=== PATIENT | female | born 1995 | race Caucasian/White ===

== ENCOUNTER 2022-07-31 17:53 | Observation (INO) | payer OTHER, SELFPAY ==
[2022-07-31] VITALS (26 sets, daily range): BP systolic 128–167; BP diastolic 67–103; PULSE 43–68; RESP 16–36; TEMP 36.3–36.7; O2SAT 97–100; BMI 19.8
[2022-07-31] MEDS: ONDANSETRON 4 MG/2 ML INJ IV (18:31)
[2022-07-31] MEDS: SODIUM CHLORIDE 0.9% 1,000 ML 1000 ML IV (18:32)
--- NOTE | 2022-07-31 18:41 | ED_ITS ---
HPI - Nausea/Vomiting/Diarrhea General Chief complaint: Nausea/Vomiting/Diarrhea Stated complaint: nausea/sob x1 day Time Seen by Provider: 07/31/22 18:41 Source: patient Mode of arrival: Ambulatory Limitations: no limitations History of Present Illness HPI Narrative: This is a 26-year-old female on Prozac for depression, patient states she has a history of throwing up she states that will happen a couple times a year and she will usually have to go to the hospital for fluids and antinausea medication. She states different things seemed to exacerbate it sometimes it is after she is been drinking alcohol, which he is having period cramps or an ovarian cyst. Patient states she started having symptoms today she is been diaphoretic all day so she thinks she may or may not had a fever. Patient states she is felt a little short of breath a little bit of chest pain but states it started after her vomiting. She is had persistent vomiting throughout the day. She states she is been stooling regularly without any diarrhea constipation. She has not had any dysuria, urgency or frequency. She states she is been cramping in her feet and hands scanning a little bit better but is still very much present. She denies any passing out. She denies abdominal back or flank pain. Patient states her only medication is Prozac no changes 2 dosages. She denies any prior surgeries. No known drug allergies. She smokes tobacco occasionally. She states she typically has 2 or 3 alcoholic drinks daily and had several more left yesterday. She does use marijuana daily. She denies any other illicit. She lives in [place] normally. She states she has not reaction to some kind of antinausea medication that made her very jittery but she does not know what it is called. She does have a primary care through [facility]. Related Data Allergies Allergy/AdvReac Type Severity Reaction Status Date / Time No Known Drug Allergies Allergy Verified 07/31/22 17:58 Review of Systems Review of Systems ROS Unobtainable: All systems reviewed & are unremarkable except as noted in HPI and below Patient History Social History Smoking Status: Current every day smoker Smoking Status: Current every day smoker alcohol intake frequency: 0-2 drinks per day Alcohol type: hard liquor Substance Use Type: marijuana Exam Narrative Exam Narrative: GEN: w thin female alert and oriented x 3, patient appears to be in moderate distress. Patient is diaphoretic. HEENT: Atraumatic, pupils are equal round reactive to light, extraocular movements are intact, nares are clear, TMs are clear with no fluid, there is no conjunctival pallor. Throat is clear without any exudates, erythema, tonsillar enlargement or uvular deviation HEART: Bradycardic but Regular rate and rhythm without murmur, clicks, rubs. No carotid bruits, pulses are equal in upper and lower extremities. Patient has no swelling bilateral lower extremities. LUNGS:Lungs clear to auscultation, no wheezes, rales, crackles, chest moves symmetrically, no tachypnea or accessory muscle use. ABD:bowel sounds normal, soft, no guarding, rebound, rigidity, no masses noted, no hepatosplenomegaly, nontender to palpation. Not distended. :No CVA tenderness MSCL: Non-tender, no muscle atrophy, muscles strength 5/5 upper and lower extremities, full range of motion NEURO:CN 2-12 intact, sensation normal, no tremor, earlier patient states earlier she was having carpopedal type spasms but not appreciated currently. No fasciculations. Initial Vital Signs Initial Vital Signs: Vital Signs Pulse Rate 54 L 07/31/22 17:58 Respiratory Rate 18 07/31/22 17:58 Blood Pressure 128/76 07/31/22 17:58 Pulse Oximetry 100 07/31/22 17:58 Oxygen Delivery Method 07/31/22 17:58 Course Orders Ordered: ED Orders 07/31/22 20:40 Lactate (Lactic Acid) Stat 07/31/22 21:12 Covid-19 + FLU A/B + RSV - PCR Stat 07/31/22 22:01 EKG-12 Lead Stat 07/31/22 22:15 CT abdomen pelvis w con Stat Acetaminophen (Acetaminophen 325 Mg Tablet) 650 mg PO Q6H PRN PRN Reason: Fever/Mild Pain (1-3) Sodium Chloride (Normal Saline 0.9%) 1,000 mls @ 125 mls/hr IV CONT AILYN Last Admin: 08/01/22 01:23 Dose: 125 mls/hr Documented By: SB Lorazepam (Lorazepam 2 Mg/Ml Inj) 1 mg IV Q4HR PRN PRN Reason: Anxiety Last Admin: 08/01/22 03:39 Dose: 1 mg Documented By: Admin: 07/31/22 20:32 Dose: 1 mg Documented By: CURTIS Naloxone HCl (Naloxone 0.4 Mg/Ml Vial) 0.2 mg IV Q2MIN PRN PRN Reason: Opiate Reversal Promethazine HCl (Promethazine 12.5 Mg Supp) 12.5 mg MT Q6HR PRN PRN Reason: Nausea And Vomiting Discontinued Medications Sodium Chloride (Normal Saline 0.9%) 1,000 mls @ 1,000 mls/hr IV BOLUS ONE Stop: 07/31/22 19:29 Last Infusion: 07/31/22 20:02 Dose: 0 mls/hr Documented By: Admin: 07/31/22 18:32 Dose: 1,000 mls/hr Documented By: CURTIS Lactated Ringer's (Lactated Ringers) 1,000 mls @ 1,000 mls/hr IV BOLUS ONE Stop: 07/31/22 19:54 Last Infusion: 07/31/22 21:01 Dose: 0 mls/hr Documented By: Admin: 07/31/22 20:02 Dose: 1,000 mls/hr Documented By: CURTIS Magnesium Sulfate (Magnesium Sulfate) 2 gm in 50 mls @ 25 mls/hr IV NOW ONE Stop: 07/31/22 21:38 Last Infusion: 07/31/22 21:55 Dose: 0 mls/hr Documented By: DIRK Co-signed By: CURTIS Admin: 07/31/22 19:46 Dose: 25 mls/hr Documented By: CURTIS Co-signed By: SUMA Lactated Ringer's (Lactated Ringers) 1,000 mls @ 1,000 mls/hr IV BOLUS ONE Stop: 07/31/22 22:58 Last Infusion: 08/01/22 01:22 Dose: 0 mls/hr Documented By: Admin: 07/31/22 22:12 Dose: 1,000 mls/hr Documented By: CURTIS Lorazepam (Lorazepam 2 Mg/Ml Inj) 1 mg IV NOW ONE Stop: 07/31/22 18:52 Last Admin: 07/31/22 19:04 Dose: 1 mg Documented By: CURTIS Lorazepam (Lorazepam 2 Mg/Ml Inj) 0.5 mg IV NOW ONE Stop: 07/31/22 22:15 Last Admin: 07/31/22 22:38 Dose: 0.5 mg Documented By: CURTIS Ondansetron HCl (Ondansetron 4 Mg Odt) 4 mg PO NOW PRN PRN Reason: Nausea And Vomiting Ondansetron HCl (Ondansetron 4 Mg/2 Ml Inj) 4 mg IV NOW PRN PRN Reason: Nausea And Vomiting Last Admin: 07/31/22 18:31 Dose: 4 mg Documented By: CURTIS Vital Signs Vital signs: Vital Signs - 8 hr 07/31/22 21:10 07/31/22 21:10 07/31/22 21:20 Temperature Pulse Rate 64 63 Respiratory Rate 22 24 Blood Pressure 154/95 H Pulse Oximetry 100 99 07/31/22 21:20 07/31/22 21:30 07/31/22 21:40 Temperature Pulse Rate 63 63 Respiratory Rate Blood Pressure 150/99 H Pulse Oximetry 99 99 07/31/22 21:40 07/31/22 21:50 07/31/22 21:50 Temperature 98.0 F Pulse Rate 62 Respiratory Rate Blood Pressure 139/92 H 137/94 H Pulse Oximetry 97 07/31/22 22:00 07/31/22 22:00 07/31/22 22:10 Temperature Pulse Rate 63 68 Respiratory Rate 28 H 30 H Blood Pressure 141/92 H Pulse Oximetry 98 99 07/31/22 22:10 07/31/22 22:34 07/31/22 23:00 Temperature Pulse Rate 66 65 Respiratory Rate 36 H Blood Pressure 132/85 Pulse Oximetry 100 100 07/31/22 23:30 08/01/22 00:00 08/01/22 00:20 Temperature Pulse Rate 64 65 64 Respiratory Rate 28 H Blood Pressure Pulse Oximetry 99 100 99 08/01/22 00:20 08/01/22 00:30 Temperature Pulse Rate 65 Respiratory Rate Blood Pressure 154/98 H Pulse Oximetry 99 MDM - Nausea/Vomiting/Diarrhea Lab Data 07/31/22 18:26 07/31/22 18:26 Labs: Lab Results 07/31/22 07/31/22 07/31/22 Range/Units 18:26 18:26 18:26 WBC 14.2 H (4.5-11.0) X10^3/uL RBC 4.16 (4.0-5.2) X10^6/uL Hgb 13.2 (12.0-16.0) g/dL Hct 38.6 (36-46) % MCV 92.8 (80-100) fL MCH 31.7 (26-34) PG MCHC 34.1 (30-36) % RDW 13.6 (11.6-14.8) % Plt Count 274 (150-400) X10^3/uL Neut % (Auto) 90.9 H (50-75) % Lymph % (Auto) 6.3 L (25-40) % [place] % (Auto) 2.5 L (3-14) % Eos % (Auto) 0.1 L (2-4) % Baso % (Auto) 0.2 (0-2) % Neut # (Auto) 36118 H (9638-1758) /uL Lymph # (Auto) 900 L (7807-6451) /uL [place] # (Auto) 400 (0-900) /uL Eos # (Auto) 0 (0-450) /uL Baso # (Auto) 0 (0-100) /uL Sodium 139 (137-145) mmol/L Potassium 3.4 (3.4-5.1) mmol/L Chloride 106 (98-107) mmol/L Carbon Dioxide 13 L (22-32) mmol/L BUN 12 (7-17) mg/dL Creatinine 0.50 L (0.52-1.04) mg/dL Estimated GFR > 60 (>60) mL/min BUN/Creatinine Ratio 24.0 H (6-22) Glucose 171 H (70-100) mg/dL Lactate (0.7-2.1) mmol/L Calcium 10.0 (8.4-10.2) mg/dL Magnesium (1.6-2.3) mg/dL Total Bilirubin 0.9 (0.2-1.3) mg/dL AST 34 (14-36) IU/L ALT 31 (<35) IU/L Alkaline Phosphatase 50 (38-126) U/L Total Creatine Kinase 107 (30-135) U/L CK-MB (CK-2) 0.77 (<2.37) ng/mL CK-MB (CK-2) Rel Index 0.7 L (1.5-5.0) % Troponin I < 0.012 (0.01-0.034) ng/mL Total Protein 8.2 (6.3-8.2) g/dL Albumin 5.1 H (3.5-5.0) g/dL Globulin 3.1 (1.7-4.1) g/dL Albumin/Globulin Ratio 1.6 (1.0-2.8) Lipase 33 (23-300) U/L Procalcitonin (<0.5) ng/mL Urine RBC (0-5/HPF) Urine WBC (0-5/HPF) Urine Bacteria (None) Urine Mucus (Negative) Ur Culture Indicated? U Opiates 300ng/mL cut (Negative) Ur Oxycodone Screen (Negative) Urine Methadone Screen (Negative) Ur Barbiturates Screen (Negative) U Tricyclic Antidepress (Negative) Ur Phencyclidine Scrn (Negative) Ur Amphetamines Screen (Negative) U Methamphetamines Scrn (Negative) Ur MDMA Scrn (Ecstasy) (Negative) U Benzodiazepines Scrn (Negative) Urine Cocaine Screen (Negative) U Marijuana (THC) Screen (Negative) Ethyl Alcohol ( - 10) mg/dL SARS-CoV-2 (PCR) (Negative) Influenza A (RT-PCR) (NEGATIVE) Influenza B (RT-PCR) (NEGATIVE) RSV (PCR) (Negative) 07/31/22 07/31/22 07/31/22 Range/Units 18:26 18:26 18:26 WBC (4.5-11.0) X10^3/uL RBC (4.0-5.2) X10^6/uL Hgb (12.0-16.0) g/dL Hct (36-46) % MCV (80-100) fL MCH (26-34) PG MCHC (30-36) % RDW (11.6-14.8) % Plt Count (150-400) X10^3/uL Neut % (Auto) (50-75) % Lymph % (Auto) (25-40) % [place] % (Auto) (3-14) % Eos % (Auto) (2-4) % Baso % (Auto) (0-2) % Neut # (Auto) (7298-4347) /uL Lymph # (Auto) (2207-0409) /uL [place] # (Auto) (0-900) /uL Eos # (Auto) (0-450) /uL Baso # (Auto) (0-100) /uL Sodium (137-145) mmol/L Potassium (3.4-5.1) mmol/L Chloride (98-107) mmol/L Carbon Dioxide (22-32) mmol/L BUN (7-17) mg/dL Creatinine (0.52-1.04) mg/dL Estimated GFR (>60) mL/min BUN/Creatinine Ratio (6-22) Glucose (70-100) mg/dL Lactate 4.6 H* (0.7-2.1) mmol/L Calcium (8.4-10.2) mg/dL Magnesium 1.5 L (1.6-2.3) mg/dL Total Bilirubin (0.2-1.3) mg/dL AST (14-36) IU/L ALT (<35) IU/L Alkaline Phosphatase (38-126) U/L Total Creatine Kinase (30-135) U/L CK-MB (CK-2) (<2.37) ng/mL CK-MB (CK-2) Rel Index (1.5-5.0) % Troponin I (0.01-0.034) ng/mL Total Protein (6.3-8.2) g/dL Albumin (3.5-5.0) g/dL Globulin (1.7-4.1) g/dL Albumin/Globulin Ratio (1.0-2.8) Lipase (23-300) U/L Procalcitonin (<0.5) ng/mL Urine RBC (0-5/HPF) Urine WBC (0-5/HPF) Urine Bacteria (None) Urine Mucus (Negative) Ur Culture Indicated? U Opiates 300ng/mL cut (Negative) Ur Oxycodone Screen (Negative) Urine Methadone Screen (Negative) Ur Barbiturates Screen (Negative) U Tricyclic Antidepress (Negative) Ur Phencyclidine Scrn (Negative) Ur Amphetamines Screen (Negative) U Methamphetamines Scrn (Negative) Ur MDMA Scrn (Ecstasy) (Negative) U Benzodiazepines Scrn (Negative) Urine Cocaine Screen (Negative) U Marijuana (THC) Screen (Negative) Ethyl Alcohol < 10 ( - 10) mg/dL SARS-CoV-2 (PCR) (Negative) Influenza A (RT-PCR) (NEGATIVE) Influenza B (RT-PCR) (NEGATIVE) RSV (PCR) (Negative) 07/31/22 07/31/22 07/31/22 Range/Units 18:26 19:25 19:25 WBC (4.5-11.0) X10^3/uL RBC (4.0-5.2) X10^6/uL Hgb (12.0-16.0) g/dL Hct (36-46) % MCV (80-100) fL MCH (26-34) PG MCHC (30-36) % RDW (11.6-14.8) % Plt Count (150-400) X10^3/uL Neut % (Auto) (50-75) % Lymph % (Auto) (25-40) % [place] % (Auto) (3-14) % Eos % (Auto) (2-4) % Baso % (Auto) (0-2) % Neut # (Auto) (0977-3169) /uL Lymph # (Auto) (6684-8425) /uL [place] # (Auto) (0-900) /uL Eos # (Auto) (0-450) /uL Baso # (Auto) (0-100) /uL Sodium (137-145) mmol/L Potassium (3.4-5.1) mmol/L Chloride (98-107) mmol/L Carbon Dioxide (22-32) mmol/L BUN (7-17) mg/dL Creatinine (0.52-1.04) mg/dL Estimated GFR (>60) mL/min BUN/Creatinine Ratio (6-22) Glucose (70-100) mg/dL Lactate (0.7-2.1) mmol/L Calcium (8.4-10.2) mg/dL Magnesium (1.6-2.3) mg/dL Total Bilirubin (0.2-1.3) mg/dL AST (14-36) IU/L ALT (<35) IU/L Alkaline Phosphatase (38-126) U/L Total Creatine Kinase (30-135) U/L CK-MB (CK-2) (<2.37) ng/mL CK-MB (CK-2) Rel Index (1.5-5.0) % Troponin I (0.01-0.034) ng/mL Total Protein (6.3-8.2) g/dL Albumin (3.5-5.0) g/dL Globulin (1.7-4.1) g/dL Albumin/Globulin Ratio (1.0-2.8) Lipase (23-300) U/L Procalcitonin < 0.03 (<0.5) ng/mL Urine RBC None seen (0-5/HPF) Urine WBC 0-1/hpf (0-5/HPF) Urine Bacteria None seen (None) Urine Mucus 1+ H (Negative) Ur Culture Indicated? Cult not indicated U Opiates 300ng/mL cut Negative (Negative) Ur Oxycodone Screen Negative (Negative) Urine Methadone Screen Negative (Negative) Ur Barbiturates Screen Negative (Negative) U Tricyclic Antidepress Negative (Negative) Ur Phencyclidine Scrn Negative (Negative) Ur Amphetamines Screen Negative (Negative) U Methamphetamines Scrn Negative (Negative) Ur MDMA Scrn (Ecstasy) Negative (Negative) U Benzodiazepines Scrn Negative (Negative) Urine Cocaine Screen Negative (Negative) U Marijuana (THC) Screen Positive H (Negative) Ethyl Alcohol ( - 10) mg/dL SARS-CoV-2 (PCR) (Negative) Influenza A (RT-PCR) (NEGATIVE) Influenza B (RT-PCR) (NEGATIVE) RSV (PCR) (Negative) 07/31/22 07/31/22 07/31/22 Range/Units 20:40 21:12 23:20 WBC (4.5-11.0) X10^3/uL RBC (4.0-5.2) X10^6/uL Hgb (12.0-16.0) g/dL Hct (36-46) % MCV (80-100) fL MCH (26-34) PG MCHC (30-36) % RDW (11.6-14.8) % Plt Count (150-400) X10^3/uL Neut % (Auto) (50-75) % Lymph % (Auto) (25-40) % [place] % (Auto) (3-14) % Eos % (Auto) (2-4) % Baso % (Auto) (0-2) % Neut # (Auto) (6433-3691) /uL Lymph # (Auto) (4981-7855) /uL [place] # (Auto) (0-900) /uL Eos # (Auto) (0-450) /uL Baso # (Auto) (0-100) /uL Sodium (137-145) mmol/L Potassium (3.4-5.1) mmol/L Chloride (98-107) mmol/L Carbon Dioxide (22-32) mmol/L BUN (7-17) mg/dL Creatinine (0.52-1.04) mg/dL Estimated GFR (>60) mL/min BUN/Creatinine Ratio (6-22) Glucose (70-100) mg/dL Lactate 2.9 H 2.2 H (0.7-2.1) mmol/L Calcium (8.4-10.2) mg/dL Magnesium (1.6-2.3) mg/dL Total Bilirubin (0.2-1.3) mg/dL AST (14-36) IU/L ALT (<35) IU/L Alkaline Phosphatase (38-126) U/L Total Creatine Kinase (30-135) U/L CK-MB (CK-2) (<2.37) ng/mL CK-MB (CK-2) Rel Index (1.5-5.0) % Troponin I (0.01-0.034) ng/mL Total Protein (6.3-8.2) g/dL Albumin (3.5-5.0) g/dL Globulin (1.7-4.1) g/dL Albumin/Globulin Ratio (1.0-2.8) Lipase (23-300) U/L Procalcitonin (<0.5) ng/mL Urine RBC (0-5/HPF) Urine WBC (0-5/HPF) Urine Bacteria (None) Urine Mucus (Negative) Ur Culture Indicated? U Opiates 300ng/mL cut (Negative) Ur Oxycodone Screen (Negative) Urine Methadone Screen (Negative) Ur Barbiturates Screen (Negative) U Tricyclic Antidepress (Negative) Ur Phencyclidine Scrn (Negative) Ur Amphetamines Screen (Negative) U Methamphetamines Scrn (Negative) Ur MDMA Scrn (Ecstasy) (Negative) U Benzodiazepines Scrn (Negative) Urine Cocaine Screen (Negative) U Marijuana (THC) Screen (Negative) Ethyl Alcohol ( - 10) mg/dL SARS-CoV-2 (PCR) Negative (Negative) Influenza A (RT-PCR) Flu a negative (NEGATIVE) Influenza B (RT-PCR) Flu b negative (NEGATIVE) RSV (PCR) Negative (Negative) Point of Care Testing Test Results Negative Urine Dip Bedside Urine Glucose Negative Bedside Urine Bilirubin - Negative Bedside Urine Ketone - Negative Urine Specific [place] 1.025 Bedside Urine Occult Blood +/- Bedside Urine pH 6.0 Bedside Urine Protein - Negative Bedside Urine Urobilinogen - Negative Bedside Urine Nitrite - Negative Bedside Urine Leukocytes +/- 15 Esterase Imaging Data Chest x-ray: Radiologist's Impression: Close Chest X-Ray (Signed) Jorje Hilton - 07/31/22 Launch?Image [address] [address] XRay Report Signed Patient: Elaine Silver MR#: [id number] : 1995 Acct:[id number] Age/Sex: 26 / F Date of Service: 07/31/22 Loc: ED Accession Number: [id number] ?? Procedure: XR chest 1V Ordering Provider: Miriam Apple D.O. PROCEDURE:? XR CHEST 1V ? INDICATIONS:? vomiting, hx hyperemesis, bradycardia ? TECHNIQUE:? One view of the chest was acquired.? ? COMPARISON:? None. ? FINDINGS:? ? Surgical changes and devices:? None.? ? Lungs and pleura:? Lungs are clear.? No pleural effusions or pneumothorax.? ? Mediastinum:? Mediastinal contours appear normal.? Heart size is normal.? ? Bones and chest wall:? No suspicious bony lesions.? Overlying soft tissues appear unremarkable.? ? IMPRESSION:? No acute cardiopulmonary pathology. ? ? Dictated by: Jorje Hilton M.D. on 07/31/2022 at 19:52 ? ? Approved by: Jorje Hilton M.D. on 07/31/2022 at 19:52?? CT scan - abdomen/pelvis: Radiologist's Impression: [address] [address] [address] Scan Report Signed Patient: Elaine Silver MR#: [id number] : 1995 Acct:[id number] Age/Sex: 26 / F Date of Service: 07/31/22 Loc: ED Accession Number: [id number] ?? Procedure: CT abdomen pelvis w con Ordering Provider: Miriam Apple D.O. PROCEDURE:? CT ABDOMEN PELVIS W CON ? INDICATIONS:? n/v intermittent symptoms, ? TECHNIQUE:? After the administration of intravenous contrast, axial sections acquired from the lung bases to the pubic symphysis.? Coronal and sagittal reformats were performed.? For radiation dose reduction, the following was used:? automated exposure control, adjustment of mA and/or kV according to patient size.? ? COMPARISON:? None. ? FINDINGS:? Image quality:? Excellent.? ? Lung bases:? Unremarkable.? Note is made the small portion of the breast tissue identified bilaterally is asymmetric in appearance, with a possible mass lesion at the subareolar right breast measuring up to 2.6 x 4.2 cm.13? Heart:? No significant findings. ? ABDOMEN: Liver:? Unremarkable.? ? Gallbladder:? No calcified gallstones seen but there appears to be a small amount of fluid along the anterior border of the gallbladder at its interface with the liver.? Please refer to series 2, image 33.? Biliary ducts:? Unremarkable.? ? Pancreas:? Unremarkable.? ? Spleen:? Unremarkable.? ? Adrenal Glands:? Unremarkable.? ? Kidneys and Ureters:? Unremarkable.? ? ? Stomach and Bowel:? Stomach, small bowel loops, and colon are unremarkable.? Peritoneum:? No abnormal intraperitoneal fluid.? No free air.? ? Ventral Wall: ? No hernias.? Abdominal Nodes:? No retroperitoneal or mesenteric adenopathy by size criteria.? Vessels:? Aorta and inferior vena cava are normal in size.? ? PELVIS: Pelvic Organs:? Unremarkable.? Anteverted uterus, centrally positioned IUD ? Bladder:? Unremarkable.? ? Pelvic Nodes: No enlarged lymph nodes.? Miscellaneous: No hernias are seen. ? ? ? Bones:? Unremarkable.? IMPRESSION:? ? 1.? Gallbladder appears to demonstrate adjacent free fluid at the gallbladder fossa, measuring slightly less than 1 cm in maximal thickness.? No calcified gallstones seen within.? Noncalcified gallstones may not be accurately detected by CT scanning. ? 2.? As discussed there is asymmetric partial visualization of the breast tissue somewhat greater on the right than the left and at the subareolar right breast tissue partially visualized is ovoid area possible lesion.? Please correlate clinically and refer to series 2, image 1.? ? 3.? Anteverted uterus, centrally positioned IUD within.? Bowel structures appear normal.? Dictated by: Arvin Engel M.D. on 07/31/2022 at 22:34 ? ? Approved by: Arvin Engel M.D. on 07/31/2022 at 22:39?? ECG Data Attestation: I personally reviewed and interpreted this ECG as follows: Prior ECG tracings: available for review Interpretation: Sinus bradycardia rate of 45 MT 90 QRS is 78 QTC of 558 Patient does not have prior EKG for comparison. EKG 2., rate of 62, patient does appear to have P waves but are down words in 2 3 AVF. Patient's MT is 150 QRS is 80 QTC is 485 improved from prior from earlier today. Nonspecific change. No ST elevation. No new depression. MDM Narrative Medical decision making narrative: This is a 26-year-old female who presents with history of what sounds like hyperemesis patient states overall similar symptoms in the past accepts she is been more diaphoretic. Patient states she did drink more alcohol last night which may have exacerbated her recent episode. She is noted to be bradycardic with prolonged QT. She is on Prozac daily which is known to do this as well no other medications that she is aware of she denies anything other than marijuana or ETOH in terms of ingestion. Patient had received a doses Zofran under [facility] prior to being seen by myself. Patient blood pressure has been appropriate. Will avoid QT prolonging medications. Labs were initiated she has a white count of 14, CO2 is 13 normal creatinine and electrolytes including potassium, calcium are normal, magnesium is low at 1.5 and was replaced with 2 g IV. Patient is also noted to be on Prozac and this may be contributing as well. Patient's abdominal labs are normal, lipase is negative. She is not complaining of any abdominal pain. This may be acute on chronic with her hyperemesis but patient is going to have watchful monitoring and may require additional workup including CT abdomen pelvis. Lactate expected to be elevated patient has received a L of fluids is receiving a 2nd of LR and 1 of Ativan to help with nausea. Patient had cardiac enzymes added on, chest x-ray and lactate, cultures. Patient's cardiac enzymes are negative, CK is negative, lactate 4.6, procalcitonin is negative. Cultures were obtained. Urine shows 1+ mucus but 1 white cell, no nitrites no leuks. Toxicology is positive for marijuana, ETOH is negative. On recheck after Ativan patient's diaphoresis has resolved she still bradycardic but occasionally into the 60s with her heart rate and although still nauseated is starting to feel better. We will give additional dose of Ativan patient continues to improve. Repeat lactate 2.9 repeat EKG shows improving QT at 485 and heart rate is in the 60s consistently. Patient is still nauseated but no vomiting. She is feeling better but definitely not back to baseline. Reviewed the changes on her EKGs at length that it can be related to the magnesium level but she is also on Prozac. She is unaware if there is any prior issues discussed at length with and her boyfriend at bedside who is also interacting with her mom about following up to actually stop or change her Prozac if she does appear to have prolonged QT normally with prior or repeat EKGs. We will give another L of fluids, reassess but patient does appear to be continuing to improve. Patient had a few ice chips started vomiting. She continues to have intermittent diaphoresis heart rates continued to be improved. CT abdomen pelvis was obtained shows some fluid along the edge of the gallbladder between the liver but no other changes to the gallbladder itself. She is not significan tly tender over her right upper quadrant. There is a possible lesion in the right breast but patient is aware this and states she had a cyst that was evaluated and sounds like she is already aware and been evaluated. Patient case was discussed with Dr. Bartlett from General surgery reviewed her labs, past history and findings today plan for observation under medicine. Patient does not have an acute abdomen at this time or seem appropriate for surgery. Discussed whether to start antibiotics and feels at this time we should hold off. Spoke with hospitalist, ARTHUR David who accepts for observation. Discussed patient's lactate have been improving overall she is been improving but has still had persistent vomiting with unclear significance of the findings on her CT. Plan for general surgery consultation, continuing fluids antiemetics. We did discuss she would a quite prolonged QT earlier might be related to her Prozac and they will avoid QT prolonging agents. Discharge Plan Departure Patient Disposition: Admitted as Observation Clinical Impression: Vomiting Admit Date/Time: 08/01/22 00:49 Admit Provider: Dora David
[2022-07-31 18:50] LABS: Add Manual Diff / Slide Review NO; Basophils Absolute Auto 0 /uL (0-100); Basophils Percent Auto 0.2 % (0-2); Eosinophils Absolute Auto 0 /uL (0-450); Eosinophils Percent Auto 0.1 % (2-4); Hematocrit 38.6 % (36-46); Hemoglobin 13.2 g/dL (12.0-16.0); Lymphocytes Absolute Auto 900 /uL (1100-4500); Lymphocytes Percent Auto 6.3 % (25-40); Mean Corpuscular HGB Conc 34.1 % (30-36); Mean Corpuscular Hemoglobin 31.7 PG (26-34); Mean Corpuscular Volume 92.8 fL (80-100); Monocytes Absolute Auto 400 /uL (0-900); Monocytes Percent Auto 2.5 % (3-14); Neutrophils Absolute Auto 12900 /uL (1500-7000); Neutrophils Percent Auto 90.9 % (50-75); Platelet Count 274 X10^3/uL (150-400); Red Blood Cell Count 4.16 X10^6/uL (4.0-5.2); Red Cell Distribution Width 13.6 % (11.6-14.8); White Blood Cell Count 14.2 X10^3/uL (4.5-11.0)
[2022-07-31 18:52] LABS: Alanine Aminotransferase 31 IU/L (<35); Albumin 5.1 g/dL (3.5-5.0); Albumin Globulin Ratio 1.6 (1.0-2.8); Alkaline Phosphatase 50 U/L (38-126); Aspartate Aminotransferase 34 IU/L (14-36); Bilirubin Total 0.9 mg/dL (0.2-1.3); Blood Urea Nitrogen 12 mg/dL (7-17); Carbon Dioxide 13 mmol/L (22-32); Chloride 106 mmol/L (98-107); Estimated Glomerular Filt Rate > 60 mL/min (>60); Globulin 3.1 g/dL (1.7-4.1); Glucose 171 mg/dL (70-100); HEMOLYSIS < 15 (0-50); Lipase 33 U/L (23-300); Potassium 3.4 mmol/L (3.4-5.1); Sodium 139 mmol/L (137-145); Total Protein 8.2 g/dL (6.3-8.2)
--- NOTE | 2022-07-31 18:54 | DI.RAD.S_ITS ---
PROCEDURE: XR CHEST 1V INDICATIONS: vomiting, hx hyperemesis, bradycardia TECHNIQUE: One view of the chest was acquired. COMPARISON: None. FINDINGS: Surgical changes and devices: None. Lungs and pleura: Lungs are clear. No pleural effusions or pneumothorax. Mediastinum: Mediastinal contours appear normal. Heart size is normal. Bones and chest wall: No suspicious bony lesions. Overlying soft tissues appear unremarkable. IMPRESSION: No acute cardiopulmonary pathology. Dictated by: Jorje Hilton M.D. on 07/31/2022 at 19:52 Approved by: Jorje Hilton M.D. on 07/31/2022 at 19:52
[2022-07-31] MEDS: LORazepam 2 MG/ML INJ 1 MG IV ×2 (19:04→20:32)
[2022-07-31 19:09] LABS: Creatine Kinase 107 U/L (30-135)
[2022-07-31 19:14] LABS: Ethanol (ETOH) < 10 mg/dL; Lactate (Lactic Acid) 4.6 mmol/L (0.7-2.1)
[2022-07-31 19:22] LABS: Troponin I < 0.012 ng/mL (0.01-0.034)
[2022-07-31 19:25] LABS: CKMB % Relative Index 0.7 % (1.5-5.0); Creatine Kinase MB 0.77 ng/mL (<2.37)
[2022-07-31 19:36] LABS: Magnesium 1.5 mg/dL (1.6-2.3)
[2022-07-31] MEDS: MAGNESIUM SULFATE 2 GM/50 ML PIGGYBACK IV (19:46)
[2022-07-31 19:52] LABS: Ur Creatinine 10 (Normal)
[2022-07-31 19:53] LABS: UR Morphine/Opiate cutoff 300 Negative (Negative); Urine Amphetamines Negative (Negative); Urine Barbiturates Negative (Negative); Urine Benzodiazepines Negative (Negative); Urine Cocaine Negative (Negative); Urine MDMA Negative (Negative); Urine Methadone Negative (Negative); Urine Methamphetamines Negative (Negative); Urine Oxycodone Negative (Negative); Urine Phencyclidine Negative (Negative); Urine Tetrahydrocannabinol Positive (Negative); Urine Tricyclic Antidepressant Negative (Negative); Urine pH 9 (Normal)
--- NOTE | 2022-07-31 19:57 | PC.NURSE ---
Pt reports N&V that began around 1130 this morning, with some SOB, leg cramps and generalized weakness. Pt is pale, diaphoretic upon arrival and throwing up. Pt reports similar episodes after mixing alcohol and marijuana. Pt reports having 5 beers last night and marijuana and then some more marijuana at about noon today. Pt is requesting fluids. Pt denies chest pain. Provider aware of pt presentation. Call light within reach. Encouraged to use for needs.
[2022-07-31 20:01] LABS: Procalcitonin < 0.03 ng/mL (<0.5)
[2022-07-31] MEDS: LACTATED RINGERS 1,000 ML 1000 ML IV ×2 (20:02→22:12)
[2022-07-31 20:06] LABS: Bacteria Urine None Seen; RBC Urine None Seen (0-5/HPF); WBC Urine 0-1/HPF (0-5/HPF)
[2022-07-31 20:07] LABS: Culture Indicated Urine Cult Not Indicated; Mucus Urine 1+ (Negative)
[2022-07-31 21:00] LABS: Reflexed Lactate in 2 Hours Y
[2022-07-31 21:03] LABS: Lactate (Lactic Acid) 2.9 mmol/L (0.7-2.1)
[2022-07-31 21:52] LABS: Influenza A - CEPHEID Flu A NEGATIVE (NEGATIVE); Influenza B - CEPHEID Flu B NEGATIVE (NEGATIVE); Respiratory Syncytial Virus Negative (Negative)
[2022-07-31 21:54] LABS: COVID-19 CEPHEID 4-PLEX PCR Negative (Negative)
--- NOTE | 2022-07-31 22:15 | DI.CT.S_ITS ---
PROCEDURE: CT ABDOMEN PELVIS W CON INDICATIONS: n/v intermittent symptoms, TECHNIQUE: After the administration of intravenous contrast, axial sections acquired from the lung bases to the pubic symphysis. Coronal and sagittal reformats were performed. For radiation dose reduction, the following was used: automated exposure control, adjustment of mA and/or kV according to patient size. COMPARISON: None. FINDINGS: Image quality: Excellent. Lung bases: Unremarkable. Note is made the small portion of the breast tissue identified bilaterally is asymmetric in appearance, with a possible mass lesion at the subareolar right breast measuring up to 2.6 x 4.2 cm.13 Heart: No significant findings. ABDOMEN: Liver: Unremarkable. Gallbladder: No calcified gallstones seen but there appears to be a small amount of fluid along the anterior border of the gallbladder at its interface with the liver. Please refer to series 2, image 33. Biliary ducts: Unremarkable. Pancreas: Unremarkable. Spleen: Unremarkable. Adrenal Glands: Unremarkable. Kidneys and Ureters: Unremarkable. Stomach and Bowel: Stomach, small bowel loops, and colon are unremarkable. Peritoneum: No abnormal intraperitoneal fluid. No free air. Ventral Wall: No hernias. Abdominal Nodes: No retroperitoneal or mesenteric adenopathy by size criteria. Vessels: Aorta and inferior vena cava are normal in size. PELVIS: Pelvic Organs: Unremarkable. Anteverted uterus, centrally positioned IUD [id number] Bladder: Unremarkable. Pelvic Nodes: No enlarged lymph nodes. Miscellaneous: No hernias are seen. Bones: Unremarkable. IMPRESSION: 1. Gallbladder appears to demonstrate adjacent free fluid at the gallbladder fossa, measuring slightly less than 1 cm in maximal thickness. No calcified gallstones seen within. Noncalcified gallstones may not be accurately detected by CT scanning. 2. As discussed there is asymmetric partial visualization of the breast tissue somewhat greater on the right than the left and at the subareolar right breast tissue partially visualized is ovoid area possible lesion. Please correlate clinically and refer to series 2, image 1. 3. Anteverted uterus, centrally positioned IUD within. Bowel structures appear normal. Dictated by: Arvin Engel M.D. on 07/31/2022 at 22:34 Approved by: Arvin Engel M.D. on 07/31/2022 at 22:39
[2022-07-31] MEDS: LORazepam 2 MG/ML INJ 0.5 MG IV (22:38)
[2022-07-31 22:54] LABS: Reflexed Lactate in 2 Hours Y
[2022-07-31 23:39] LABS: Lactate 2HR (Lactic Acid Rflx) 2.2 mmol/L (0.7-2.1)
[2022-08-01] VITALS (39 sets, daily range): BP systolic 128–157; BP diastolic 66–101; PULSE 48–91; RESP 14–39; TEMP 36.2–37.3; O2SAT 95–100; BMI 20.4
--- NOTE | 2022-08-01 00:23 | PC.NURSE ---
Pt is diaphoretic again. Pt reports vomiting about 3 times in the last 20 minutes. Provider aware.
[2022-08-01] MEDS: SODIUM CHLORIDE 0.9% 1,000 ML 125 ML IV ×3 (01:23→21:44)
--- NOTE | 2022-08-01 02:41 | P.HP_ITS ---
History of Present Illness History of Present Illness Date Patient Seen: 08/01/22 Time Patient Seen: 02:41 Chief complaint: nausea/sob x1 day Narrative: Elaine Silver ?is a 26-year-old female on Prozac for depression, patient states she has a history of throwing up she states that will happen a couple times a year and she will usually have to go to the hospital for fluids and antinausea medication.? She states different things seemed to exacerbate it sometimes it is after she is been drinking alcohol, having period cramps or an ovarian cyst.? Patient states she started having symptoms today she is been with chills and sweats all day so she thinks she may or may not had a fever.? Patient states she is felt a little short of breath a little bit of chest pain but states it started after her vomiting.? She is had persistent vomiting throughout the day.? She states she is been stooling regularly without any diarrhea constipation.? She has not had any dysuria, urgency or frequency.? She states she is been cramping in her feet and hands scanning a little bit better but is still very much present.? She denies any passing out.? She denies abdominal back or flank pain.? Patient states her only medication is Prozac no changes 2 dosages.? She denies any prior surgeries.? No known drug allergies.? She smokes tobacco occasionally.? She states she typically has 2 or 3 alcoholic drinks daily and had several more left yesterday.? She does use marijuana daily and states it usually helps her nausea.? She denies any other illicit.? She lives in [place] normally.? She states she has not reaction to some kind of antinausea medication that made her very jittery but she does not know what it is called.? She does have a primary care through [facility]. She is requesting taking a shower In the ED, she was noted to be bradycardic in the 40s. EKG revealed long QT and antiemetics were stopped. Long QT may also be due to fluoxetine which she takes for depression. Her magnesium was low at 1.5 and she was administered 2 grams of IV magnesium. Plan was to give her an oral challenge with ice and she started to vomit again. She was noted by the ED provider to be extremely diaphoretic, but was not observed by me. She was requested for an observation stay until her symptoms are better controlled. She is afebrile, blood pressure 154/98 heart rate 52 respiratory rate 21 oxygen saturation of 97% on room air she weighs 47.6 kg with a BMI of 20. She has a mildly elevated white count of 14.2 likely stress-induced glucose was 171 lactate was initially 4.6 and is now 2.2 magnesium was 1.5 albumin 5.1 UA was negative for UTI but positive for marijuana and COVID-19 PCR is negative. Patient History Family & Social History Safety & Behavioral: Feels Safe in Current Yes Environment Tobacco & Substance use: Smoking Status Current every day smoker alcohol intake frequency 0-2 drinks per day Substance Use Type marijuana Meds Home Medications and Allergies Allergies Allergy/AdvReac Type Severity Reaction Status Date / Time No Known Drug Allergies Allergy Verified 07/31/22 17:58 Review of Systems Review of Systems ROS: Yes All systems reviewed with the patient and are negative except as otherwise documented Exam Vital Signs (past 8 hours): - 07/31/22 18:55 07/31/22 18:45 07/31/22 19:00 Temperature Pulse Rate 44 L 44 L 43 L Respiratory Rate 18 16 Blood Pressure Pulse Oximetry 100 100 100 Oxygen Delivery Method Room Air 07/31/22 19:06 07/31/22 19:06 07/31/22 19:32 Temperature 97.4 F L Pulse Rate 61 48 L Respiratory Rate 17 20 Blood Pressure 158/82 H Pulse Oximetry 100 Oxygen Delivery Method Room Air 07/31/22 19:33 07/31/22 19:33 07/31/22 20:00 Temperature Pulse Rate 47 L 44 L Respiratory Rate 17 Blood Pressure 137/81 Pulse Oximetry 100 Oxygen Delivery Method 07/31/22 20:30 07/31/22 20:38 07/31/22 20:38 Temperature Pulse Rate 64 66 Respiratory Rate 22 Blood Pressure 151/102 H Pulse Oximetry 100 100 Oxygen Delivery Method 07/31/22 20:39 07/31/22 20:39 07/31/22 20:40 Temperature Pulse Rate 64 64 Respiratory Rate Blood Pressure 167/103 H Pulse Oximetry 100 100 Oxygen Delivery Method 07/31/22 20:40 07/31/22 20:50 07/31/22 20:50 Temperature Pulse Rate 64 Respiratory Rate Blood Pressure 160/97 H 166/88 H Pulse Oximetry 100 Oxygen Delivery Method 07/31/22 21:00 07/31/22 21:00 07/31/22 21:10 Temperature Pulse Rate 63 64 Respiratory Rate 22 Blood Pressure 155/91 H Pulse Oximetry 100 100 Oxygen Delivery Method 07/31/22 21:10 07/31/22 21:20 07/31/22 21:20 Temperature Pulse Rate 63 Respiratory Rate 24 Blood Pressure 154/95 H 150/99 H Pulse Oximetry 99 Oxygen Delivery Method 07/31/22 21:30 07/31/22 21:40 07/31/22 21:40 Temperature Pulse Rate 63 63 Respiratory Rate Blood Pressure 139/92 H Pulse Oximetry 99 99 Oxygen Delivery Method 07/31/22 21:50 07/31/22 21:50 07/31/22 22:00 Temperature 98.0 F Pulse Rate 62 Respiratory Rate Blood Pressure 137/94 H 141/92 H Pulse Oximetry 97 Oxygen Delivery Method 07/31/22 22:00 07/31/22 22:10 07/31/22 22:10 Temperature Pulse Rate 63 68 Respiratory Rate 28 H 30 H Blood Pressure 132/85 Pulse Oximetry 98 99 Oxygen Delivery Method 07/31/22 22:34 07/31/22 23:00 07/31/22 23:30 Temperature Pulse Rate 66 65 64 Respiratory Rate 36 H Blood Pressure Pulse Oximetry 100 100 99 Oxygen Delivery Method 08/01/22 00:00 08/01/22 00:20 08/01/22 00:20 Temperature Pulse Rate 65 64 Respiratory Rate 28 H Blood Pressure 154/98 H Pulse Oximetry 100 99 Oxygen Delivery Method 08/01/22 00:30 08/01/22 01:00 08/01/22 01:30 Temperature Pulse Rate 65 62 52 L Respiratory Rate 21 Blood Pressure Pulse Oximetry 99 98 97 Oxygen Delivery Method Oxygen Delivery Method Room Air Narrative Exam Narrative: Gen: Alert, oriented, thin 26 y.o. female, retching when I came into the room HEENT: normocephalic, atraumatic, conjunctiva clear, sclera non-icteric, oral mucosa pink and moist Neck: supple, full ROM, no JVD, trachea is midline Resp: Lungs CTA, non-labored breathing CV: RRR, no murmur or rubs Abd: soft, non-tender, normoactive BTs Skin: no lesions or rashes, dry and intact Neuro: Alert and oriented X 4 w/no focal deficits. Speech clear and coherent. Extremities: moves all 4 extremities, is ambulatory, negative Heraclio?s sign Psyche: anxious Objective Labs 07/31/22 18:26 07/31/22 18:26 Labs: Laboratory Results - last 24 hr 07/31/22 07/31/22 07/31/22 18:26 18:26 18:26 WBC 14.2 H RBC 4.16 Hgb 13.2 Hct 38.6 MCV 92.8 MCH 31.7 MCHC 34.1 RDW 13.6 Plt Count 274 Neut % (Auto) 90.9 H Lymph % (Auto) 6.3 L [place] % (Auto) 2.5 L Eos % (Auto) 0.1 L Baso % (Auto) 0.2 Neut # (Auto) 60912 H Lymph # (Auto) 900 L [place] # (Auto) 400 Eos # (Auto) 0 Baso # (Auto) 0 Sodium 139 Potassium 3.4 Chloride 106 Carbon Dioxide 13 L BUN 12 Creatinine 0.50 L Estimated GFR > 60 BUN/Creatinine Ratio 24.0 H Glucose 171 H Lactate Calcium 10.0 Magnesium Total Bilirubin 0.9 AST 34 ALT 31 Alkaline Phosphatase 50 Total Creatine Kinase 107 CK-MB (CK-2) 0.77 CK-MB (CK-2) Rel Index 0.7 L Troponin I < 0.012 Total Protein 8.2 Albumin 5.1 H Globulin 3.1 Albumin/Globulin Ratio 1.6 Lipase 33 Procalcitonin Urine RBC Urine WBC Urine Bacteria Urine Mucus Ur Culture Indicated? U Opiates 300ng/mL cut Ur Oxycodone Screen Urine Methadone Screen Ur Barbiturates Screen U Tricyclic Antidepress Ur Phencyclidine Scrn Ur Amphetamines Screen U Methamphetamines Scrn Ur MDMA Scrn (Ecstasy) U Benzodiazepines Scrn Urine Cocaine Screen U Marijuana (THC) Screen Ethyl Alcohol SARS-CoV-2 (PCR) Influenza A (RT-PCR) Influenza B (RT-PCR) RSV (PCR) 07/31/22 07/31/22 07/31/22 18:26 18:26 18:26 WBC RBC Hgb Hct MCV MCH MCHC RDW Plt Count Neut % (Auto) Lymph % (Auto) [place] % (Auto) Eos % (Auto) Baso % (Auto) Neut # (Auto) Lymph # (Auto) [place] # (Auto) Eos # (Auto) Baso # (Auto) Sodium Potassium Chloride Carbon Dioxide BUN Creatinine Estimated GFR BUN/Creatinine Ratio Glucose Lactate 4.6 H* Calcium Magnesium 1.5 L Total Bilirubin AST ALT Alkaline Phosphatase Total Creatine Kinase CK-MB (CK-2) CK-MB (CK-2) Rel Index Troponin I Total Protein Albumin Globulin Albumin/Globulin Ratio Lipase Procalcitonin Urine RBC Urine WBC Urine Bacteria Urine Mucus Ur Culture Indicated? U Opiates 300ng/mL cut Ur Oxycodone Screen Urine Methadone Screen Ur Barbiturates Screen U Tricyclic Antidepress Ur Phencyclidine Scrn Ur Amphetamines Screen U Methamphetamines Scrn Ur MDMA Scrn (Ecstasy) U Benzodiazepines Scrn Urine Cocaine Screen U Marijuana (THC) Screen Ethyl Alcohol < 10 SARS-CoV-2 (PCR) Influenza A (RT-PCR) Influenza B (RT-PCR) RSV (PCR) 07/31/22 07/31/22 07/31/22 18:26 19:25 19:25 WBC RBC Hgb Hct MCV MCH MCHC RDW Plt Count Neut % (Auto) Lymph % (Auto) [place] % (Auto) Eos % (Auto) Baso % (Auto) Neut # (Auto) Lymph # (Auto) [place] # (Auto) Eos # (Auto) Baso # (Auto) Sodium Potassium Chloride Carbon Dioxide BUN Creatinine Estimated GFR BUN/Creatinine Ratio Glucose Lactate Calcium Magnesium Total Bilirubin AST ALT Alkaline Phosphatase Total Creatine Kinase CK-MB (CK-2) CK-MB (CK-2) Rel Index Troponin I Total Protein Albumin Globulin Albumin/Globulin Ratio Lipase Procalcitonin < 0.03 Urine RBC None seen Urine WBC 0-1/hpf Urine Bacteria None seen Urine Mucus 1+ H Ur Culture Indicated? Cult not indicated U Opiates 300ng/mL cut Negative Ur Oxycodone Screen Negative Urine Methadone Screen Negative Ur Barbiturates Screen Negative U Tricyclic Antidepress Negative Ur Phencyclidine Scrn Negative Ur Amphetamines Screen Negative U Methamphetamines Scrn Negative Ur MDMA Scrn (Ecstasy) Negative U Benzodiazepines Scrn Negative Urine Cocaine Screen Negative U Marijuana (THC) Screen Positive H Ethyl Alcohol SARS-CoV-2 (PCR) Influenza A (RT-PCR) Influenza B (RT-PCR) RSV (PCR) 07/31/22 07/31/22 07/31/22 20:40 21:12 23:20 WBC RBC Hgb Hct MCV MCH MCHC RDW Plt Count Neut % (Auto) Lymph % (Auto) [place] % (Auto) Eos % (Auto) Baso % (Auto) Neut # (Auto) Lymph # (Auto) [place] # (Auto) Eos # (Auto) Baso # (Auto) Sodium Potassium Chloride Carbon Dioxide BUN Creatinine Estimated GFR BUN/Creatinine Ratio Glucose Lactate 2.9 H 2.2 H Calcium Magnesium Total Bilirubin AST ALT Alkaline Phosphatase Total Creatine Kinase CK-MB (CK-2) CK-MB (CK-2) Rel Index Troponin I Total Protein Albumin Globulin Albumin/Globulin Ratio Lipase Procalcitonin Urine RBC Urine WBC Urine Bacteria Urine Mucus Ur Culture Indicated? U Opiates 300ng/mL cut Ur Oxycodone Screen Urine Methadone Screen Ur Barbiturates Screen U Tricyclic Antidepress Ur Phencyclidine Scrn Ur Amphetamines Screen U Methamphetamines Scrn Ur MDMA Scrn (Ecstasy) U Benzodiazepines Scrn Urine Cocaine Screen U Marijuana (THC) Screen Ethyl Alcohol SARS-CoV-2 (PCR) Negative Influenza A (RT-PCR) Flu a negative Influenza B (RT-PCR) Flu b negative RSV (PCR) Negative Assessment & Plan Assessment & Plan narrative: Elaine Silver will be kept under observation in the ED until likely the late am when a medical bed becomes available and/or her symptoms resolve. Cannibis hyperemesis syndrome, acute, present on admission * IV zofran contributed to long QT * Ativan is the only medication that is currently controlling her N/V * IV fluids NS at 125 ml/hour Hypomagnemesia, acute * She was administered 2 grams of IV mag * Recheck mag in the am. Other independent historians: friend at the bedside Discussion of results, plan of care with independent HCP/other: ED provider Reviewed outside records: records VTE Prophylaxis: Wells risk score 0 X Bilateral SCDs Patient is placed into observation as her stay is not expected to exceed 2 midnights. FEN: IV fluids: NS at 125 ml/hour, diet: general, advance as tolerated, labs: CBC, C/BMP, liver enzymes, Magnesium Consultants None Social determinants of health: unknown Dispo: likely d/c to home. Code status: Full code as discussed with the patient [X] I have utilized all available immediate resources to obtain, update, or review of the patient's current medications VTE Deep Vein Thrombosis/Pulmonary Embolism Present on Admission: No MIPS - Admit I confirm the patient?s Advance Care Plan is present, Code status is documented, Surrogate decision maker is in patient?s record: Yes MIPS - DC The patient has current or prior documentation of left ventricular ejection fraction (LVEF) less than 40%, or moderate or severely depressed left ventricular systolic function.: No COVID-19 COVID-19 status: Negative Result date/Date tested (Pos, Neg/Pending): 08/01/22
[2022-08-01] MEDS: LORazepam 2 MG/ML INJ 1 MG IV ×4 (03:39→19:08)
--- NOTE | 2022-08-01 07:49 | PC.NURSE ---
pt reports remaining nauseated, has gotten iv ativan overnight for nausea, ordered from pharmacy phenergan suppository and gave 1/4 cup of ice chips to try pt asked for juice, explained i need to get nausea meds into her then if tolerating ice chips we can try juice.
[2022-08-01] MEDS: PROMETHAZINE 12.5 MG SUPP PR ×2 (07:59→17:59)
[2022-08-01 08:35] LABS: Add Manual Diff / Slide Review NO; Basophils Absolute Auto 0 /uL (0-100); Basophils Percent Auto 0.4 % (0-2); Eosinophils Absolute Auto 0 /uL (0-450); Hematocrit 35.1 % (36-46); Hemoglobin 11.9 g/dL (12.0-16.0); Lymphocytes Absolute Auto 800 /uL (1100-4500); Lymphocytes Percent Auto 7.5 % (25-40); Mean Corpuscular HGB Conc 33.9 % (30-36); Mean Corpuscular Hemoglobin 31.6 PG (26-34); Mean Corpuscular Volume 93.4 fL (80-100); Monocytes Absolute Auto 300 /uL (0-900); Monocytes Percent Auto 2.8 % (3-14); Neutrophils Absolute Auto 9300 /uL (1500-7000); Neutrophils Percent Auto 89.3 % (50-75); Platelet Count 227 X10^3/uL (150-400); Red Blood Cell Count 3.76 X10^6/uL (4.0-5.2); Red Cell Distribution Width 13.8 % (11.6-14.8); White Blood Cell Count 10.4 X10^3/uL (4.5-11.0)
[2022-08-01 08:47] LABS: Alanine Aminotransferase 25 IU/L (<35); Albumin 4.2 g/dL (3.5-5.0); Albumin Globulin Ratio 1.7 (1.0-2.8); Alkaline Phosphatase 34 U/L (38-126); Aspartate Aminotransferase 28 IU/L (14-36); BUN Creatinine Ratio 18.8 (6-22); Bilirubin Total 0.7 mg/dL (0.2-1.3); Blood Urea Nitrogen 9 mg/dL (7-17); Calcium 8.3 mg/dL (8.4-10.2); Carbon Dioxide 23 mmol/L (22-32); Chloride 105 mmol/L (98-107); Estimated Glomerular Filt Rate > 60 mL/min (>60); Globulin 2.5 g/dL (1.7-4.1); Glucose 117 mg/dL (70-100); HEMOLYSIS < 15 (0-50); Lactate (Lactic Acid) 1.5 mmol/L (0.7-2.1); Magnesium 1.8 mg/dL (1.6-2.3); Potassium 4.1 mmol/L (3.4-5.1); Sodium 138 mmol/L (137-145); Total Protein 6.7 g/dL (6.3-8.2)
--- NOTE | 2022-08-01 09:53 | P.CONS_ITS ---
History of Present Illness Consult details Date Patient Seen: 08/01/22 Time Patient Seen: 09:54 Chief complaint: nausea/sob x1 day Narrative: 26-year-old woman presents to the emergency room with persistent nausea and emesis. On arrival afebrile, mild bradycardia, White blood cell count 10, total bilirubin 0.7 LFTs within normal limits. CT abdomen pelvis demonstrates small amount of fluid near the gallbladder fossa however there are no gallstones or gallbladder wall thickening. Meds Home Medications and Allergies Home Medications Medication Instructions Recorded Confirmed Type clascoterone 1 % topical cream 1 applic topical BID 08/01/22 08/01/22 History (Jennifer) Allergies Allergy/AdvReac Type Severity Reaction Status Date / Time No Known Drug Allergies Allergy Verified 07/31/22 17:58 Exam Vital Signs (past 8 hours): - 08/01/22 07:47 08/01/22 02:00 08/01/22 02:30 Temperature Pulse Rate 65 51 L Respiratory Rate 20 Blood Pressure 136/66 Pulse Oximetry 98 100 Oxygen Delivery Method 08/01/22 03:00 08/01/22 03:40 08/01/22 04:00 Temperature Pulse Rate 63 60 49 L Respiratory Rate 15 20 Blood Pressure Pulse Oximetry 98 97 Oxygen Delivery Method 08/01/22 04:30 08/01/22 05:00 08/01/22 05:30 Temperature Pulse Rate 51 L 48 L 56 L Respiratory Rate 20 20 20 Blood Pressure Pulse Oximetry 98 97 97 Oxygen Delivery Method 08/01/22 06:00 08/01/22 06:30 08/01/22 07:01 Temperature Pulse Rate 54 L 54 L 58 L Respiratory Rate 20 20 20 Blood Pressure Pulse Oximetry 97 95 97 Oxygen Delivery Method 08/01/22 07:30 08/01/22 07:45 08/01/22 07:45 Temperature 98.4 F Pulse Rate 66 56 L Respiratory Rate 18 Blood Pressure 136/66 Pulse Oximetry 99 100 Oxygen Delivery Method 08/01/22 07:50 08/01/22 07:50 08/01/22 08:00 Temperature Pulse Rate 51 L Respiratory Rate 14 Blood Pressure 137/68 133/77 Pulse Oximetry 98 Oxygen Delivery Method Room Air 08/01/22 08:00 08/01/22 08:10 08/01/22 08:10 Temperature Pulse Rate 52 L 57 L Respiratory Rate Blood Pressure 141/83 H Pulse Oximetry 99 97 Oxygen Delivery Method 08/01/22 08:30 08/01/22 08:30 08/01/22 08:40 Temperature Pulse Rate 73 55 L Respiratory Rate Blood Pressure 138/101 H Pulse Oximetry 100 98 Oxygen Delivery Method 08/01/22 08:40 08/01/22 08:50 08/01/22 08:50 Temperature Pulse Rate 62 Respiratory Rate 32 H Blood Pressure 128/67 137/89 Pulse Oximetry 100 Oxygen Delivery Method 08/01/22 09:00 08/01/22 09:00 08/01/22 09:10 Temperature Pulse Rate 51 L Respiratory Rate 28 H Blood Pressure 157/89 H 157/93 H Pulse Oximetry 100 Oxygen Delivery Method 08/01/22 09:10 08/01/22 09:20 08/01/22 09:20 Temperature Pulse Rate 51 L 54 L Respiratory Rate 27 H 27 H Blood Pressure 142/83 H Pulse Oximetry 97 97 Oxygen Delivery Method 08/01/22 09:30 08/01/22 09:31 08/01/22 09:31 Temperature Pulse Rate 72 91 H Respiratory Rate 22 37 H Blood Pressure 151/79 H Pulse Oximetry 99 99 Oxygen Delivery Method 08/01/22 09:40 08/01/22 09:40 Temperature Pulse Rate 55 L Respiratory Rate 39 H Blood Pressure 144/84 H Pulse Oximetry 97 Oxygen Delivery Method Oxygen Delivery Method Room Air Narrative Exam Narrative: GENERAL: A well nourished, well developed woman appearing stated age, no acute distress, drowsy but awakens to voice HEENT: Normocephalic, atraumatic. No scleral icterus CHEST: Rising symmetrically. No audible wheezes CARDIOVASCULAR: Warm and well perfused. Regular rate ABDOMEN: Soft, non-tender, non-distended EXTREMITIES: Normal tone and without edema. NEUROLOGIC: Moving all extremities spontaneously. No gross motor deficits. Objective Labs 08/01/22 08:15 08/01/22 08:15 Labs: Laboratory Results - last 24 hr 07/31/22 07/31/22 07/31/22 18:26 18:26 18:26 WBC 14.2 H RBC 4.16 Hgb 13.2 Hct 38.6 MCV 92.8 MCH 31.7 MCHC 34.1 RDW 13.6 Plt Count 274 Neut % (Auto) 90.9 H Lymph % (Auto) 6.3 L [place] % (Auto) 2.5 L Eos % (Auto) 0.1 L Baso % (Auto) 0.2 Neut # (Auto) 84941 H Lymph # (Auto) 900 L [place] # (Auto) 400 Eos # (Auto) 0 Baso # (Auto) 0 Sodium 139 Potassium 3.4 Chloride 106 Carbon Dioxide 13 L BUN 12 Creatinine 0.50 L Estimated GFR > 60 BUN/Creatinine Ratio 24.0 H Glucose 171 H Lactate Calcium 10.0 Magnesium Total Bilirubin 0.9 AST 34 ALT 31 Alkaline Phosphatase 50 Total Creatine Kinase 107 CK-MB (CK-2) 0.77 CK-MB (CK-2) Rel Index 0.7 L Troponin I < 0.012 Total Protein 8.2 Albumin 5.1 H Globulin 3.1 Albumin/Globulin Ratio 1.6 Lipase 33 Procalcitonin Urine RBC Urine WBC Urine Bacteria Urine Mucus Ur Culture Indicated? U Opiates 300ng/mL cut Ur Oxycodone Screen Urine Methadone Screen Ur Barbiturates Screen U Tricyclic Antidepress Ur Phencyclidine Scrn Ur Amphetamines Screen U Methamphetamines Scrn Ur MDMA Scrn (Ecstasy) U Benzodiazepines Scrn Urine Cocaine Screen U Marijuana (THC) Screen Ethyl Alcohol SARS-CoV-2 (PCR) Influenza A (RT-PCR) Influenza B (RT-PCR) RSV (PCR) 07/31/22 07/31/22 07/31/22 18:26 18:26 18:26 WBC RBC Hgb Hct MCV MCH MCHC RDW Plt Count Neut % (Auto) Lymph % (Auto) Marion % (Auto) Eos % (Auto) Baso % (Auto) Neut # (Auto) Lymph # (Auto) [place] # (Auto) Eos # (Auto) Baso # (Auto) Sodium Potassium Chloride Carbon Dioxide BUN Creatinine Estimated GFR BUN/Creatinine Ratio Glucose Lactate 4.6 H* Calcium Magnesium 1.5 L Total Bilirubin AST ALT Alkaline Phosphatase Total Creatine Kinase CK-MB (CK-2) CK-MB (CK-2) Rel Index Troponin I Total Protein Albumin Globulin Albumin/Globulin Ratio Lipase Procalcitonin Urine RBC Urine WBC Urine Bacteria Urine Mucus Ur Culture Indicated? U Opiates 300ng/mL cut Ur Oxycodone Screen Urine Methadone Screen Ur Barbiturates Screen U Tricyclic Antidepress Ur Phencyclidine Scrn Ur Amphetamines Screen U Methamphetamines Scrn Ur MDMA Scrn (Ecstasy) U Benzodiazepines Scrn Urine Cocaine Screen U Marijuana (THC) Screen Ethyl Alcohol < 10 SARS-CoV-2 (PCR) Influenza A (RT-PCR) Influenza B (RT-PCR) RSV (PCR) 07/31/22 07/31/22 07/31/22 18:26 19:25 19:25 WBC RBC Hgb Hct MCV MCH MCHC RDW Plt Count Neut % (Auto) Lymph % (Auto) [place] % (Auto) Eos % (Auto) Baso % (Auto) Neut # (Auto) Lymph # (Auto) [place] # (Auto) Eos # (Auto) Baso # (Auto) Sodium Potassium Chloride Carbon Dioxide BUN Creatinine Estimated GFR BUN/Creatinine Ratio Glucose Lactate Calcium Magnesium Total Bilirubin AST ALT Alkaline Phosphatase Total Creatine Kinase CK-MB (CK-2) CK-MB (CK-2) Rel Index Troponin I Total Protein Albumin Globulin Albumin/Globulin Ratio Lipase Procalcitonin < 0.03 Urine RBC None seen Urine WBC 0-1/hpf Urine Bacteria None seen Urine Mucus 1+ H Ur Culture Indicated? Cult not indicated U Opiates 300ng/mL cut Negative Ur Oxycodone Screen Negative Urine Methadone Screen Negative Ur Barbiturates Screen Negative U Tricyclic Antidepress Negative Ur Phencyclidine Scrn Negative Ur Amphetamines Screen Negative U Methamphetamines Scrn Negative Ur MDMA Scrn (Ecstasy) Negative U Benzodiazepines Scrn Negative Urine Cocaine Screen Negative U Marijuana (THC) Screen Positive H Ethyl Alcohol SARS-CoV-2 (PCR) Influenza A (RT-PCR) Influenza B (RT-PCR) RSV (PCR) 07/31/22 07/31/22 07/31/22 20:40 21:12 23:20 WBC RBC Hgb Hct MCV MCH MCHC RDW Plt Count Neut % (Auto) Lymph % (Auto) Marion % (Auto) Eos % (Auto) Baso % (Auto) Neut # (Auto) Lymph # (Auto) Marion # (Auto) Eos # (Auto) Baso # (Auto) Sodium Potassium Chloride Carbon Dioxide BUN Creatinine Estimated GFR BUN/Creatinine Ratio Glucose Lactate 2.9 H 2.2 H Calcium Magnesium Total Bilirubin AST ALT Alkaline Phosphatase Total Creatine Kinase CK-MB (CK-2) CK-MB (CK-2) Rel Index Troponin I Total Protein Albumin Globulin Albumin/Globulin Ratio Lipase Procalcitonin Urine RBC Urine WBC Urine Bacteria Urine Mucus Ur Culture Indicated? U Opiates 300ng/mL cut Ur Oxycodone Screen Urine Methadone Screen Ur Barbiturates Screen U Tricyclic Antidepress Ur Phencyclidine Scrn Ur Amphetamines Screen U Methamphetamines Scrn Ur MDMA Scrn (Ecstasy) U Benzodiazepines Scrn Urine Cocaine Screen U Marijuana (THC) Screen Ethyl Alcohol SARS-CoV-2 (PCR) Negative Influenza A (RT-PCR) Flu a negative Influenza B (RT-PCR) Flu b negative RSV (PCR) Negative 08/01/22 08/01/22 08/01/22 08:15 08:15 08:15 WBC 10.4 RBC 3.76 L Hgb 11.9 L Hct 35.1 L MCV 93.4 MCH 31.6 MCHC 33.9 RDW 13.8 Plt Count 227 Neut % (Auto) 89.3 H Lymph % (Auto) 7.5 L Marion % (Auto) 2.8 L Eos % (Auto) 0.0 L Baso % (Auto) 0.4 Neut # (Auto) 9300 H Lymph # (Auto) 800 L Marion # (Auto) 300 Eos # (Auto) 0 Baso # (Auto) 0 Sodium 138 Potassium 4.1 Chloride 105 Carbon Dioxide 23 BUN 9 Creatinine 0.48 L Estimated GFR > 60 BUN/Creatinine Ratio 18.8 Glucose 117 H Lactate 1.5 Calcium 8.3 L Magnesium 1.8 Total Bilirubin 0.7 AST 28 ALT 25 Alkaline Phosphatase 34 L Total Creatine Kinase CK-MB (CK-2) CK-MB (CK-2) Rel Index Troponin I Total Protein 6.7 Albumin 4.2 Globulin 2.5 Albumin/Globulin Ratio 1.7 Lipase Procalcitonin Urine RBC Urine WBC Urine Bacteria Urine Mucus Ur Culture Indicated? U Opiates 300ng/mL cut Ur Oxycodone Screen Urine Methadone Screen Ur Barbiturates Screen U Tricyclic Antidepress Ur Phencyclidine Scrn Ur Amphetamines Screen U Methamphetamines Scrn Ur MDMA Scrn (Ecstasy) U Benzodiazepines Scrn Urine Cocaine Screen U Marijuana (THC) Screen Ethyl Alcohol SARS-CoV-2 (PCR) Influenza A (RT-PCR) Influenza B (RT-PCR) RSV (PCR) [facility] Tobacco & Substance Use Smoking Status: Current every day smoker Assessment & Plan Assessment and plan (1) Vomiting: Status: Acute Assessment & Plan narrative: 26-year-old woman admitted for hyperemesis. Consulted in regards to her gallbladder. I personally reviewed CT abdomen pelvis which demonstrates small amount of fluid within the gallbladder fossa there are no gallstones and no gallbladder wall thickening. On examination she is without right upper quadrant tenderness. laboratory studies are within normal limits. Unlikely that her gallbladder is this source of her nausea and emesis. No surgical intervention is indicated. Time Spent With Patient Critical Care time: I spent a total of [] minutes of critical care time on this patient's care today; this time is exclusive of procedural time.
--- NOTE | 2022-08-01 16:51 | P.PN_ITS ---
Subjective Subjective Date Patient Seen: 08/01/22 Interval history: Elaine Silver ?is a 26-year-old female on Prozac for depression, on presentation, patient stated she has a history of throwing up she states that will happen a couple times a year and she will usually have to go to the spital for fluids and antinausea medication.? She states different things seemed to exacerbate it sometimes it is after she is been drinking alcohol, having period cramps or an ovarian cyst.? Patient states she started having symptoms on day of presentation, she also had chills and sweats all day so she thought she may or may not have had a fever.? Patient stated on presentation, she may have felt a little short of breath and a little bit of chest pain but stated it started after her vomiting.? She had persistent vomiting throughout the day.? She stated she had been stooling regularly without any diarrhea or constipation.? She has not had any dysuria, urgency or frequency.? She stated she is been cramping in her feet and hands and then feeling a little bit better but is still very much present when she came to the ER.? She denied any passing out.? She denied abdominal back or flank pain.? Patient stated her only medication is Prozac no changes to dosages.? She denies any prior surgeries.? No known drug allergies.? She smokes tobacco occasionally.? She stated she typically has 2 or 3 alcoholic drinks daily and had several more left yesterday.? She does use marijuana daily and states it usually helps her nausea.? She denies any other illicit.? Tried some fluid just earlier today but still vomiting. Exam Vital Signs (past 8 hours): - 08/01/22 09:00 08/01/22 09:00 08/01/22 09:10 Temperature Pulse Rate 51 L Respiratory Rate 28 H Blood Pressure 157/89 H 157/93 H Pulse Oximetry 100 Oxygen Flow Rate 08/01/22 09:10 08/01/22 09:20 08/01/22 09:20 Temperature Pulse Rate 51 L 54 L Respiratory Rate 27 H 27 H Blood Pressure 142/83 H Pulse Oximetry 97 97 Oxygen Flow Rate 08/01/22 09:30 08/01/22 09:31 08/01/22 09:31 Temperature Pulse Rate 72 91 H Respiratory Rate 22 37 H Blood Pressure 151/79 H Pulse Oximetry 99 99 Oxygen Flow Rate 08/01/22 09:40 08/01/22 09:40 08/01/22 09:50 Temperature Pulse Rate 55 L 55 L Respiratory Rate 39 H 18 Blood Pressure 144/84 H Pulse Oximetry 97 97 Oxygen Flow Rate 08/01/22 09:50 08/01/22 10:00 08/01/22 10:00 Temperature Pulse Rate 54 L Respiratory Rate 18 Blood Pressure 144/91 H 139/92 H Pulse Oximetry 97 Oxygen Flow Rate 08/01/22 10:10 08/01/22 10:20 08/01/22 10:20 Temperature Pulse Rate 54 L Respiratory Rate 18 Blood Pressure 140/91 H 137/89 Pulse Oximetry 97 Oxygen Flow Rate 08/01/22 10:30 08/01/22 10:30 08/01/22 11:00 Temperature Pulse Rate 65 58 L Respiratory Rate 18 20 Blood Pressure 139/90 Pulse Oximetry 97 97 Oxygen Flow Rate 08/01/22 11:35 Temperature 97.2 F L Pulse Rate 51 L Respiratory Rate 18 Blood Pressure 131/85 Pulse Oximetry 99 Oxygen Flow Rate 0 Oxygen Delivery Method Room Air Oxygen Flow Rate 0 Narrative Exam Narrative: Gen: Alert, oriented, thin female HEENT: normocephalic, atraumatic, conjunctiva clear, sclera non-icteric, oral mucosa pink and moist Neck: supple, full ROM, no JVD, trachea is midline Resp: Lungs CTA, non-labored breathing CV: RRR, no murmur or rubs Abd: soft, non-tender, normoactive BTs Skin: no lesions or rashes, dry and intact Neuro: Alert and oriented X 4 w/no focal deficits. Speech clear and coherent. Extremities: moves all 4 extremities, is ambulatory, negative Heraclio?s sign Psyche: anxious generally Objective Labs 08/01/22 08:15 08/01/22 08:15 Labs: Laboratory Results - last 24 hr 07/31/22 07/31/22 07/31/22 18:26 18:26 18:26 WBC 14.2 H RBC 4.16 Hgb 13.2 Hct 38.6 MCV 92.8 MCH 31.7 MCHC 34.1 RDW 13.6 Plt Count 274 Neut % (Auto) 90.9 H Lymph % (Auto) 6.3 L [place] % (Auto) 2.5 L Eos % (Auto) 0.1 L Baso % (Auto) 0.2 Neut # (Auto) 13251 H Lymph # (Auto) 900 L [place] # (Auto) 400 Eos # (Auto) 0 Baso # (Auto) 0 Sodium 139 Potassium 3.4 Chloride 106 Carbon Dioxide 13 L BUN 12 Creatinine 0.50 L Estimated GFR > 60 BUN/Creatinine Ratio 24.0 H Glucose 171 H Lactate Calcium 10.0 Magnesium Total Bilirubin 0.9 AST 34 ALT 31 Alkaline Phosphatase 50 Total Creatine Kinase 107 CK-MB (CK-2) 0.77 CK-MB (CK-2) Rel Index 0.7 L Troponin I < 0.012 Total Protein 8.2 Albumin 5.1 H Globulin 3.1 Albumin/Globulin Ratio 1.6 Lipase 33 Procalcitonin Urine RBC Urine WBC Urine Bacteria Urine Mucus Ur Culture Indicated? U Opiates 300ng/mL cut Ur Oxycodone Screen Urine Methadone Screen Ur Barbiturates Screen U Tricyclic Antidepress Ur Phencyclidine Scrn Ur Amphetamines Screen U Methamphetamines Scrn Ur MDMA Scrn (Ecstasy) U Benzodiazepines Scrn Urine Cocaine Screen U Marijuana (THC) Screen Ethyl Alcohol SARS-CoV-2 (PCR) Influenza A (RT-PCR) Influenza B (RT-PCR) RSV (PCR) 07/31/22 07/31/22 07/31/22 18:26 18:26 18:26 WBC RBC Hgb Hct MCV MCH MCHC RDW Plt Count Neut % (Auto) Lymph % (Auto) [place] % (Auto) Eos % (Auto) Baso % (Auto) Neut # (Auto) Lymph # (Auto) [place] # (Auto) Eos # (Auto) Baso # (Auto) Sodium Potassium Chloride Carbon Dioxide BUN Creatinine Estimated GFR BUN/Creatinine Ratio Glucose Lactate 4.6 H* Calcium Magnesium 1.5 L Total Bilirubin AST ALT Alkaline Phosphatase Total Creatine Kinase CK-MB (CK-2) CK-MB (CK-2) Rel Index Troponin I Total Protein Albumin Globulin Albumin/Globulin Ratio Lipase Procalcitonin Urine RBC Urine WBC Urine Bacteria Urine Mucus Ur Culture Indicated? U Opiates 300ng/mL cut Ur Oxycodone Screen Urine Methadone Screen Ur Barbiturates Screen U Tricyclic Antidepress Ur Phencyclidine Scrn Ur Amphetamines Screen U Methamphetamines Scrn Ur MDMA Scrn (Ecstasy) U Benzodiazepines Scrn Urine Cocaine Screen U Marijuana (THC) Screen Ethyl Alcohol < 10 SARS-CoV-2 (PCR) Influenza A (RT-PCR) Influenza B (RT-PCR) RSV (PCR) 07/31/22 07/31/22 07/31/22 18:26 19:25 19:25 WBC RBC Hgb Hct MCV MCH MCHC RDW Plt Count Neut % (Auto) Lymph % (Auto) [place] % (Auto) Eos % (Auto) Baso % (Auto) Neut # (Auto) Lymph # (Auto) [place] # (Auto) Eos # (Auto) Baso # (Auto) Sodium Potassium Chloride Carbon Dioxide BUN Creatinine Estimated GFR BUN/Creatinine Ratio Glucose Lactate Calcium Magnesium Total Bilirubin AST ALT Alkaline Phosphatase Total Creatine Kinase CK-MB (CK-2) CK-MB (CK-2) Rel Index Troponin I Total Protein Albumin Globulin Albumin/Globulin Ratio Lipase Procalcitonin < 0.03 Urine RBC None seen Urine WBC 0-1/hpf Urine Bacteria None seen Urine Mucus 1+ H Ur Culture Indicated? Cult not indicated U Opiates 300ng/mL cut Negative Ur Oxycodone Screen Negative Urine Methadone Screen Negative Ur Barbiturates Screen Negative U Tricyclic Antidepress Negative Ur Phencyclidine Scrn Negative Ur Amphetamines Screen Negative U Methamphetamines Scrn Negative Ur MDMA Scrn (Ecstasy) Negative U Benzodiazepines Scrn Negative Urine Cocaine Screen Negative U Marijuana (THC) Screen Positive H Ethyl Alcohol SARS-CoV-2 (PCR) Influenza A (RT-PCR) Influenza B (RT-PCR) RSV (PCR) 07/31/22 07/31/22 07/31/22 20:40 21:12 23:20 WBC RBC Hgb Hct MCV MCH MCHC RDW Plt Count Neut % (Auto) Lymph % (Auto) [place] % (Auto) Eos % (Auto) Baso % (Auto) Neut # (Auto) Lymph # (Auto) [place] # (Auto) Eos # (Auto) Baso # (Auto) Sodium Potassium Chloride Carbon Dioxide BUN Creatinine Estimated GFR BUN/Creatinine Ratio Glucose Lactate 2.9 H 2.2 H Calcium Magnesium Total Bilirubin AST ALT Alkaline Phosphatase Total Creatine Kinase CK-MB (CK-2) CK-MB (CK-2) Rel Index Troponin I Total Protein Albumin Globulin Albumin/Globulin Ratio Lipase Procalcitonin Urine RBC Urine WBC Urine Bacteria Urine Mucus Ur Culture Indicated? U Opiates 300ng/mL cut Ur Oxycodone Screen Urine Methadone Screen Ur Barbiturates Screen U Tricyclic Antidepress Ur Phencyclidine Scrn Ur Amphetamines Screen U Methamphetamines Scrn Ur MDMA Scrn (Ecstasy) U Benzodiazepines Scrn Urine Cocaine Screen U Marijuana (THC) Screen Ethyl Alcohol SARS-CoV-2 (PCR) Negative Influenza A (RT-PCR) Flu a negative Influenza B (RT-PCR) Flu b negative RSV (PCR) Negative 08/01/22 08/01/22 08/01/22 08:15 08:15 08:15 WBC 10.4 RBC 3.76 L Hgb 11.9 L Hct 35.1 L MCV 93.4 MCH 31.6 MCHC 33.9 RDW 13.8 Plt Count 227 Neut % (Auto) 89.3 H Lymph % (Auto) 7.5 L [place] % (Auto) 2.8 L Eos % (Auto) 0.0 L Baso % (Auto) 0.4 Neut # (Auto) 9300 H Lymph # (Auto) 800 L [place] # (Auto) 300 Eos # (Auto) 0 Baso # (Auto) 0 Sodium 138 Potassium 4.1 Chloride 105 Carbon Dioxide 23 BUN 9 Creatinine 0.48 L Estimated GFR > 60 BUN/Creatinine Ratio 18.8 Glucose 117 H Lactate 1.5 Calcium 8.3 L Magnesium 1.8 Total Bilirubin 0.7 AST 28 ALT 25 Alkaline Phosphatase 34 L Total Creatine Kinase CK-MB (CK-2) CK-MB (CK-2) Rel Index Troponin I Total Protein 6.7 Albumin 4.2 Globulin 2.5 Albumin/Globulin Ratio 1.7 Lipase Procalcitonin Urine RBC Urine WBC Urine Bacteria Urine Mucus Ur Culture Indicated? U Opiates 300ng/mL cut Ur Oxycodone Screen Urine Methadone Screen Ur Barbiturates Screen U Tricyclic Antidepress Ur Phencyclidine Scrn Ur Amphetamines Screen U Methamphetamines Scrn Ur MDMA Scrn (Ecstasy) U Benzodiazepines Scrn Urine Cocaine Screen U Marijuana (THC) Screen Ethyl Alcohol SARS-CoV-2 (PCR) Influenza A (RT-PCR) Influenza B (RT-PCR) RSV (PCR) [facility] Social History household members: significant other, family and friend(s) Smoking Status: Current every day smoker Assessment & Plan Assessment & Plan narrative: 1. Cannibis hyperemesis syndrome, acute, present on admission * IV zofran contributed to long QT, discontinued, start scopolamine patch which does not affect QT, reassess EKG. * Ativan is the only medication that is currently controlling her N/V, just added scopolamine patch * IV fluids NS at 125 ml/hour 2. Regular almost daily alcohol intake. Often 2-3 glasses of drinks per day. Discussed the need to discontinue this. A low-grade gastritis secondary to alcohol intake could be contributing nausea vomiting. Add IV pantoprazole 40 mg b.i.d. follow clinically. 3. Hypomagnemesia, acute * She was administered 2 grams of IV mag * Recheck daily a.m.. 4. Chronic anxiety. Treated with Prozac. Continue on discharge. 5. Diet. Full fluids as tolerated. Follow labs and clinically. VTE Prophylaxis: Wells risk score 0 X Bilateral SCDs Code status: Full code as discussed with the patient VTE Deep Vein Thrombosis/Pulmonary Embolism Present on Admission: No MIPS - Admit I confirm the patient?s Advance Care Plan is present, Code status is documented, Surrogate decision maker is in patient?s record: Yes MIPS - DC The patient has current or prior documentation of left ventricular ejection fraction (LVEF) less than 40%, or moderate or severely depressed left vent ricular systolic function.: No COVID-19 COVID-19 status: Negative Result date/Date tested (Pos, Neg/Pending): 08/01/22 Time Spent With Patient Critical Care time: I spent a total of [] minutes of critical care time on this patient's care today; this time is exclusive of procedural time.
[2022-08-01] MEDS: SCOPOLAMINE 1 PATCH TOP (17:59)
[2022-08-01] MEDS: PANTOPRAZOLE 40 MG VIAL IV ×2 (19:08→21:46)
[2022-08-01] MEDS: hydrOXYzine pamoate 25 MG CAPSULE 50 MG PO (21:46)
[2022-08-02] MEDS: LORazepam 2 MG/ML INJ 1 MG IV ×4 (00:44→12:04)
[2022-08-02] MEDS: PROMETHAZINE 12.5 MG SUPP PR ×2 (00:45→06:58)
[2022-08-02 03:59] VITALS: BP 132/83; PULSE 55; RESP 18; TEMP 37.8; O2SAT 94
[2022-08-02 04:22] VITALS: TEMP 37.8
[2022-08-02] MEDS: ACETAMINOPHEN 325 MG TABLET 650 MG PO ×2 (04:22→12:03)
[2022-08-02] MEDS: SODIUM CHLORIDE 0.9% 1,000 ML 125 ML IV (07:03)
[2022-08-02 07:24] LABS: Add Manual Diff / Slide Review NO; Basophils Absolute Auto 0 /uL (0-100); Basophils Percent Auto 0.1 % (0-2); Eosinophils Absolute Auto 0 /uL (0-450); Hematocrit 32.4 % (36-46); Hemoglobin 11.3 g/dL (12.0-16.0); Lymphocytes Absolute Auto 1400 /uL (1100-4500); Lymphocytes Percent Auto 13.2 % (25-40); Mean Corpuscular HGB Conc 34.9 % (30-36); Mean Corpuscular Hemoglobin 32.4 PG (26-34); Mean Corpuscular Volume 92.9 fL (80-100); Monocytes Absolute Auto 500 /uL (0-900); Neutrophils Absolute Auto 8500 /uL (1500-7000); Neutrophils Percent Auto 81.7 % (50-75); Platelet Count 183 X10^3/uL (150-400); Red Blood Cell Count 3.49 X10^6/uL (4.0-5.2); Red Cell Distribution Width 13.9 % (11.6-14.8); White Blood Cell Count 10.5 X10^3/uL (4.5-11.0)
[2022-08-02 07:33] LABS: Alanine Aminotransferase 25 IU/L (<35); Albumin 3.8 g/dL (3.5-5.0); Albumin Globulin Ratio 1.7 (1.0-2.8); Alkaline Phosphatase 35 U/L (38-126); Aspartate Aminotransferase 27 IU/L (14-36); Bilirubin Total 0.7 mg/dL (0.2-1.3); Blood Urea Nitrogen 14 mg/dL (7-17); Carbon Dioxide 22 mmol/L (22-32); Chloride 107 mmol/L (98-107); Estimated Glomerular Filt Rate > 60 mL/min (>60); Globulin 2.2 g/dL (1.7-4.1); Glucose 92 mg/dL (70-100); HEMOLYSIS < 15 (0-50); Potassium 3.1 mmol/L (3.4-5.1); Sodium 137 mmol/L (137-145)
[2022-08-02 08:00] LABS: Thyroid Stimulating Hormone 0.542 uIU/mL (0.47-4.68)
[2022-08-02] MEDS: PANTOPRAZOLE 40 MG VIAL IV (08:19)
[2022-08-02] MEDS: POTASSIUM CHLORIDE IN WATER 10 MEQ/100 ML PIGGYBACK 100 MEQ IV ×4 (10:13→15:11)
[2022-08-02] MEDS: hydrOXYzine pamoate 25 MG CAPSULE 50 MG PO ×2 (10:47→15:11)
--- NOTE | 2022-08-02 12:21 | PM.DS.1 ---
History of Present Illness History of Present Illness Date Patient Seen: 08/02/22 Chief complaint: nausea/sob x1 day Narrative: Patient did have some nausea today which is minimal and a little bit of vomiting, able to tolerate ice chips. Parent are here and able to take patient home. Discharge Providers Provider Date of admission: 08/01/22 00:49 Discharge Date: 08/02/22 Consults: 08/01/22 00:58 Consult to Physician Routine Comment: Consulting Provider: Darío Bartlett Reason for consultation: Gall bladder fluid seen on CT Has provider been notified: Yes Discharge provider: Kaylin Quiroz MD Summary Hospital Course Discharge Diagnosis: Cannibis hyperemesis syndrome, acute, present on admission Regular almost daily alcohol intake.? Alcohol gastritis Hypomagnemesisa Chronic anxiety Depression Fever Leukocytosis Pronlonged QT Mild hypokalemia Hospital Course: Elaine Silver ?is a 26-year-old female on Prozac for depression, on presentation, patient stated she has a history of throwing up she states that will happen a couple times a year and she will usually have to go to the hospital for fluids and antinausea medication.? She states different things seemed to exacerbate it sometimes it is after she is been drinking alcohol, having period cramps or an ovarian cyst.? Patient states she started having symptoms on day of presentation, she also had chills and sweats all day so she thought she may or may not have had a fever.? Patient stated on presentation, she may have felt a little short of breath and? a little bit of chest pain but stated it started after her vomiting.? She had persistent vomiting throughout the day.? She stated she had been stooling regularly without any diarrhea? or constipation.? She has not had any dysuria, urgency or frequency.? She stated she is been cramping in her feet and hands and then feeling a little bit better but is still very much present when she came to the ER.? She denied any passing out.? She denied abdominal back or flank pain.? Patient stated her only medication is Prozac no changes to dosages.? She denies any prior surgeries.? No known drug allergies.? She smokes tobacco occasionally.? She stated she typically has 2 or 3 alcoholic drinks daily and had several more left yesterday.? She does use marijuana daily and states it usually helps her nausea.? She denies any other illicit.? Patient has been given the talk to avoid all alcohol and avoid all marijuana both by herself, with her boyfriend and friend present and with her family present. The QT was lengthened with the fluoxetine and ondanestron combination to QT of 646 and anti-nausea medication then was transitioned to treatment with lorazepam, promethizine, hydroyzine, and scopolamine patch. This decreased with QT to 478. On the day of discharge patient did have an elevated temp to 100.1 and so likely there is a component also of a viral gastrointestinal illness. The patient and the family will be alert to increasing symptoms that would warrant a return to the ER. Patient will suck on ice chips and popsickles until no vomiting for 24 hours and then slowly increase intake first with fluid and then progress to food. Status at Discharge Cognitive/behavioral status at discharge: at baseline, oriented Functional status at discharge: independent ambulation Overall status at discharge: patient is progressing back to baseline Time Spent with Patient Time spent: Greater than 30 minutes Exam Vital Signs (past 8 hours): - 08/02/22 04:22 Temperature 100.1 F H Oxygen Delivery Method Room Air Oxygen Flow Rate 0 Narrative Exam Narrative: Gen: Alert, oriented, thin female HEENT: normocephalic, atraumatic, conjunctiva clear, sclera non-icteric, oral mucosa pink and moist Neck: supple, full ROM, no JVD, trachea is midline Resp: Lungs CTA, non-labored breathing CV: RRR, no murmur or rubs Abd: soft, non-tender, normoactive BTs Skin: no lesions or rashes, dry and intact Neuro: Alert and oriented X 4 w/no focal deficits. Speech clear and coherent. Extremities: moves all 4 extremities, is ambulatory, negative Heraclio?s sign Psyche: anxious generally Objective Labs 08/02/22 06:45 08/02/22 06:45 Labs: Laboratory Results - last 24 hr 08/02/22 08/02/22 08/02/22 06:45 06:45 06:45 WBC 10.5 RBC 3.49 L Hgb 11.3 L Hct 32.4 L MCV 92.9 MCH 32.4 MCHC 34.9 RDW 13.9 Plt Count 183 Neut % (Auto) 81.7 H Lymph % (Auto) 13.2 L [place] % (Auto) 5.0 Eos % (Auto) 0.0 L Baso % (Auto) 0.1 Neut # (Auto) 8500 H Lymph # (Auto) 1400 [place] # (Auto) 500 Eos # (Auto) 0 Baso # (Auto) 0 Sodium 137 Potassium 3.1 L Chloride 107 Carbon Dioxide 22 BUN 14 Creatinine 0.50 L Estimated GFR > 60 BUN/Creatinine Ratio 28.0 H Glucose 92 Calcium 8.0 L Magnesium 2.0 Total Bilirubin 0.7 AST 27 ALT 25 Alkaline Phosphatase 35 L Total Protein 6.0 L Albumin 3.8 Globulin 2.2 Albumin/Globulin Ratio 1.7 TSH 0.542 PFSH Social History household members: significant other, family and friend(s) Smoking Status: Current every day smoker Discharge Plan Discharge Plan Patient Disposition: Home Discharge orders & Medications Prescriptions: New hydroxyzine pamoate 25 mg Capsule 50 mg PO TID Qty: 30 0RF lorazepam 0.5 mg tablet 0.5 mg PO TID PRN (Reason: anxiety/vomiting) Qty: 10 0RF scopolamine base 1 mg over 3 days patch 3 day 1 patch transdermal Q3D Qty: 4 0RF Rx Instructions: Put first one on, Aug 04, 2022 pantoprazole 40 mg tablet,delayed release (DR/EC) 40 mg PO DAILY Qty: 30 0RF Continued Winlevi 1 % cream 1 applic TOPICAL BID Label Comments: APPLY TO FACE TWICE DAILY hydroxyzine HCl 25 mg tablet 25 mg PO QPM lamotrigine 25 mg Tablet 50 mg PO QPM fluoxetine 20 mg capsule 60 mg PO QPM Visit Report/Discharge Packet Stand Alone Forms: Patient Portal/API, Stroke Signs & Symptoms Discharge Data Attending Provider: Dora David
[2022-08-02 13:14] VITALS: BP 147/101; PULSE 58; RESP 18; TEMP 36.6; O2SAT 98
== END 2022-08-02 18:05 | disposition home or self-care (01) ==
LOC: ED 08-01 00:43 → AC 08-01 00:49
PROVIDERS: Emergency Medicine; Neuromusculoskeletal Medicine, Sports Medicine; Admitting Provider Nurse Practitioner Family; Emergency Provider Emergency Medicine; Referring Provider Emergency Medicine; Visit Provider Nurse Practitioner Family
DX: R11.2 Nausea with vomiting, unspecified (principal); R00.1 Bradycardia, unspecified; R50.9 Fever, unspecified; E83.42 Hypomagnesemia; E87.6 Hypokalemia; D72.829 Elevated white blood cell count, unspecified; F41.9 Anxiety disorder, unspecified; F32.A Depression, unspecified; K29.20 Alcoholic gastritis without bleeding; F17.210 Nicotine dependence, cigarettes, uncomplicated; F12.90 Cannabis use, unspecified, uncomplicated; Z20.822 Contact with and (suspected) exposure to COVID-19
CPT/HCPCS: 0241U; 36415; 71045; 74177; 80053; 80305; 80320; 81003; 81015; 81025; 82550; 82553; 83605; 83690; 83735; 84145; 84443; 84484; 85025; 87040; 93005; 93010; 96361; 96365; 96366; 96375; 96376; 99232; 99285; G0378; C9113; J2060; J2405; J3475; Q9967